=== PATIENT | female | born 1975 | race Caucasian/White ===

== ENCOUNTER 2016-12-30 19:52 | Emergency (ER) | payer BC ==
[~2016-12-30] VITALS: Ht 162.6 cm; Wt 131.2 kg
[~2016-12-30 19:52] MED LIST: ACET-62 PO; BISM262O28 PO; IBUP-1724 PO; INSU100I21 SQ; INSU100I3 SQ; LEVO200T10 PO; LEVO50TA11 PO; LISI-625 PO; ONDA4TAB7 PO; SERT100T PO; TOPI200T PO
--- OUTSIDE RECORDS SUMMARY | 2016-12-30 19:57 | XMS REPORT | Continuity of Care Document ---
Author Author [facility] Organization [facility] Address Unknown Phone Unavailable Support Name Relationship Address Phone FRANCOISE FARRELL DO Caregiver [address] [address] Unavailable TIKA CH Caregiver [address] [place] [address] Unavailable SELWYN HAMPTON Next Of Kin [address] [place] [id number] Insurance Providers Guarantor Lizzy Wang Address [address] [place], [place] [id number] Email DENIED/NO [facility] Policy Number [id number] Subscriber's Name Selwyn Hampton Relationship 01 Spouse Group Number [id number] Effective Date 14 Chief Complaint and Reason for Visit Chief Complaint Nausea,Vomiting,Diarrhea Reason for Visit Diabetes mellitus Gastroenteritis Problems Active Problems Medical Problem Onset Date Status Chronic back pain Unknown Chronic History of kidney infection Unknown Resolved Hypercholesterolemia Unknown Chronic IDDM (insulin dependent diabetes mellitus) Unknown Chronic Morbid obesity with BMI of 40.0-44.9, adult Unknown Chronic Muscle spasm of back Unknown Acute Renal insufficiency Unknown Chronic Right ankle sprain Unknown Acute Sleep apnea Unknown Chronic Past Problems Medical Problem Onset Date Diabetes mellitus Unknown Diabetes mellitus Unknown Gastroenteritis Unknown Gastroenteritis Unknown Hyperglycemia Unknown Intractable low back pain Unknown Right wrist sprain Unknown Seizure Unknown Strep pharyngitis Unknown Medications Current Home Medications Medication Dose Units Route Directions Days Qty Instructions Start Date Acetaminophen 500 Mg Tablet 1,000 Mg Oral Every 8 Hours as needed for Pain 11/15/16 Bismuth Subsalicylate (Pepto-Bismol) 262 Mg/15 Ml Oral.susp 30 Ml Oral As Needed 11/15/16 Ibuprofen 200 Mg Tablet 400 Mg Oral Every 4 Hours as needed for Pain 11/15/16 Insulin Aspart (Novolog Flexpen) 1 Unit Pen 60 Unit Sub-Q Three Times Daily With Meals 08/23/16 Insulin Aspart (Novolog Flexpen) 1 Unit Pen 60 Unit Sub-Q Three Times Daily With Meals 5 Syringe 11/15/16 Insulin Detemir (Levemir Flextouch) 100 Unit/1 Ml Insuln.pen 10 Unit Sub-Q Daily Morning Insulin 08/23/16 Insulin Detemir (Levemir Flextouch) 100 Unit/1 Ml Insuln.pen 60 Unit Sub-Q Bedtime 08/23/16 Levothyroxine Sodium 50 Mcg Tablet 50 Mcg Oral Before Breakfast Take with 200 mcg to equal 250 mcg daily. 05/02/16 Levothyroxine Sodium 200 Mcg Tablet 200 Mcg Oral Before Breakfast Take with 50 mcg to equal 250 mcg daily. 05/02/16 Lisinopril 5 Mg Tablet 5 Mg Oral Daily 08/23/16 Ondansetron (Zofran Odt) 4 Mg Tab.rapdis 4 Mg Oral Q8h @ 0100/0900/1700 7 Tablet Orally disintegrating tablet 11/15/16 Sertraline Hcl (Zoloft) 100 Mg Tablet 200 Mg Oral Bedtime Topiramate (Topamax) 200 Mg Tablet 200 Mg Oral Twice A Day Social History Social History Problem Response Recorded Date/Time Onset Date Status Hx Substance Use No 11/15/2016 6:31pm Not Applicable Not Applicable Hx Alcohol Use No 11/15/2016 6:31pm Not Applicable Not Applicable Has the pt used tobacco in the last 12 months Yes 01/28/2016 10:59pm Not Applicable Not Applicable Tobacco Usage smoke 01/28/2016 11:12pm Not Applicable Not Applicable Query Response Start Date Stop Date Smoking Status Former smoker Hospital Discharge Instructions No hospital discharge instructions. Plan of Care Discharge Date 11/15/16 8:03pm Disposition 01 DISCHARGED HOME, SELF-CARE Condition at Discharge Stable Instructions/Education Provided Gastroenteritis (ED) Prescriptions See Medication Section Referrals TIKA CH Address: [address] [place] [address] Additional Instructions/Education Take the Zofran as needed for nausea/ vomiting. Make sure to take small frequent sips of clear liquids often at home. If you are not improving in the next few days then please follow up with your primary care provider or return to ER for reevaluation. May take OTC tylenol and/or motrin as needed for body aches or pain. Care Plan and Goals Physician Care Plan Problem:Gastroenteritis Goal: Follow up with primary care provider Instructions: Take medications and follow care plan as discussed/written Functional Status No functional status results. Allergies, Adverse Reactions, Alerts Allergen Type Severity Reaction Status Last Updated Penicillin Allergy Unknown Active 08/29/16 Latex Allergy Severe Active 08/29/16 Hydrocodone Adverse Reaction Mild STOMACH IRRITATION Active 08/29/16 Aspirin Adverse Reaction Mild STOMACH IRRITATION Active 08/29/16 Cephalexin Allergy Unknown Active 08/29/16 Doxycycline Allergy Unknown Active 08/29/16 Latex Allergy Unknown HIVES Active 08/29/16 Immunizations Query Response on File Recorded Date/Time Hx Influenza Vaccination N not this yr, last fall01/28/16 10:59pm Hx Pneumococcal Vaccination Y 201201/28/16 10:59pm Hx Influenza Vaccination N not this yr, last fall01/28/16 10:59pm Influenza Vaccine Hx fall 201311/15/16 6:31pm Tdap Vaccine Hx CURRENT PER PT STATEMENT 08/29/16 12:00pm Vital Signs Acute Vital Signs Vital Response Date/Time Temperature (Fahrenheit) 99.7 deg F (96.8 - 99.1) 11/15/2016 4:55pm Temperature (Calculated Celsius) 37.80256 degrees C (36.0 - 37.3) 11/15/2016 4:55pm Pulse Rate (adult) 106 bpm (60 - 100) 11/15/2016 7:44pm Respiratory Rate 16 breaths/min (10 - 20) 11/15/2016 7:44pm O2 Sat by Pulse Oximetry 97 % (90 - 100) 11/15/2016 7:44pm Oxygen Flow Rate 1.00 L/min 11/15/2016 7:44pm Blood Pressure 106/55 mm Hg 11/15/2016 7:44pm Height (Feet) 5 feet 11/15/2016 4:55pm Height (Inches) 4.00 inches 11/15/2016 4:55pm Weight (Kilograms) 127.400 kg 11/15/2016 4:55pm Body Mass Index (BMI) 48.0 11/15/2016 4:55pm Results Laboratory Results Test Name Result Units Flags Reference Collection Date/Time Result Date/ Time Comments Group A Streptococcus Screen POSITIVE A NEGATIVE 08/23/2016 1:06pm 1:19pm White Blood Count 9.5 T/MM3 4.5-11.0 11/15/2016 5:14pm 11/15/2016 5: 34pm Red Blood Count 5.20 M/MM3 4.00-5.20 11/15/2016 5:14pm 11/15/2016 5: 34pm Hemoglobin 11.4 GM/DL L 12-16 11/15/2016 5:14pm 11/15/2016 5:34pm Hematocrit 38.6 % 36-46 11/15/2016 5:14pm 11/15/2016 5:34pm Mean Corpuscular Volume 74.2 UM3 L 80-100 11/15/2016 5:14pm 11/15/2016 5 :34pm Mean Corpuscular Hemoglobin 21.9 UUG L 26-34 11/15/2016 5:14pm 2016 5:34pm Mean Corpuscular Hemoglobin Concent 29.5 GM/DL L 31-37 11/15/2016 5:11/15/2016 5:34pm RDW Standard Deviation 50.0 FL 36.9-50.2 11/15/2016 5:pm 11/15/2016 5 :34pm Platelet Count 289 T/MM3 130-400 11/15/2016 5:11/15/2016 5:34pm Mean Platelet Volume 10.2 UM3 9.4-12.4 11/15/2016 5:14pm 11/15/2016 5: 34pm Neutrophils % (Manual) 77.0 % H 33-66 11/15/2016 5:pm 11/15/2016 5: 38pm Band Neutrophils % 10.0 % H 0-6 11/15/2016 5:pm 11/15/2016 5:38pm Lymphocytes % (Manual) 6.0 % L 23-45 11/15/2016 5:pm 11/15/2016 5: 38pm Monocytes % (Manual) 2.0 % 0-9.0 11/15/2016 5:14pm 11/15/2016 5:38pm Eosinophils % (Manual) 5.0 % H 0-4 11/15/2016 5:pm 11/15/2016 5:38pm Band Neutrophils # 1.0 T/MM3 11/15/2016 5:14pm 11/15/2016 5:38pm Absolute Neutrophils (Manual) 7.3 T/MM3 1.8-7.7 11/15/2016 5:14pm 11/15 5:38pm Lymphocytes # (Manual) 0.6 T/MM3 L 1-4.8 11/15/2016 5:14pm 11/15/2016 5: 38pm Monocytes # (Manual) 0.2 T/MM3 0-0.8 11/15/2016 5:14pm 11/15/2016 5: 38pm Eosinophils # (Manual) 0.5 T/MM3 0-0.5 11/15/2016 5:14pm 11/15/2016 5: 38pm Red Cell Morphology Comment NORMAL 11/15/2016 5:pm 11/15/2016 5: 38pm Icterus Index < 2 0-7 11/15/2016 5:11/15/2016 5:29pm Chemistry Specimen Hemolysis < 15 0-25 11/15/2016 5:11/15/2016 6 :45pm 0-25: Specimen Exhibited No Hemolysis. Turbidity < 20 0-20 11/15/2016 5:11/15/2016 5:29pm Sodium Level 137 MEQ/L 134-144 11/15/2016 5:11/15/2016 5:29pm Potassium Level 5.0 MEQ/L 3.6-5 11/15/2016 5:11/15/2016 5:29pm Chloride Level 96 MEQ/L L 98-107 11/15/2016 5:11/15/2016 5:29pm Carbon Dioxide Level 25 MEQ/L 22-30 11/15/2016 5:11/15/2016 5: 29pm Anion Gap 16 MEQ/L H 5-15 11/15/2016 5:11/15/2016 5:29pm Blood Urea Nitrogen 19.0 MG/DL H 7-11/15/2016 5:11/15/2016 5: 29pm Creatinine 0.7 MG/DL 0.7-1.2 11/15/2016 5:11/15/2016 5:29pm BUN/Creatinine Ratio 27 RATIO H 6-11/15/2016 5:11/15/2016 5: 29pm Glomerular Filtration Rate Calc 92 11/15/2016 5:1411/15/2016 5: 29pm Glucose Level 471 MG/DL H 65-110 11/15/2016 5:11/15/2016 5:29pm Calculated Osmolality 287 MOSM/KG H 261-280 11/15/2016 5:2016 5:29pm Calcium Level 9.4 MG/DL 8.4-10.2 11/15/2016 5:11/15/2016 5:29pm Total Bilirubin 1.50 MG/DL H 0.20-1.30 11/15/2016 5:11/15/2016 5: 29pm Alkaline Phosphatase 81 U/L 38-126 11/15/2016 5:11/15/2016 5:29pm Total Protein 8.2 G/DL 6.3-8.2 11/15/2016 5:11/15/2016 5:29pm Albumin 4.5 G/DL 3.5-5.0 11/15/2016 5:11/15/2016 5:29pm Globulin 3.7 G/DL H 2.4-3.6 11/15/2016 5:11/15/2016 5:29pm Albumin/Globulin Ratio 1.2 RATIO 1.1-2.2 11/15/2016 5:11/15/2016 5 :29pm Aspartate Amino Transf (AST/SGOT) 34 U/L 14-36 11/15/2016 5:2016 5:29pm Alanine Aminotransferase (ALT/SGPT) 48 U/L 9-52 11/15/2016 5:11/15 5:29pm Troponin I < 0.012 ng/ml 0-0.12 11/15/2016 5:11/15/2016 6:45pm Troponin values with a difference of 55% increase from orginal troponin value represent a true biological DELTA value. (%increase Calc=Orginal Troponin value, divided by subsequent Troponin value, multiplied by 100) Urine Collection Type CLEANCATCH-MIDSTREAM 11/15/2016 5:2016 5:50pm Urine Color YELLOW YELLOW 11/15/2016 5:11/15/2016 5:50pm Urine Turbidity SL CLOUDY CLEAR 11/15/2016 5:11/15/2016 5:50pm Urine Specific [employer] 1.020 1.015-1.025 11/15/2016 5:2016 5:50pm Urine pH 5.5 5.0-8.0 11/15/2016 5:43pm 11/15/2016 5:50pm Urine Leukocyte Esterase NEGATIVE NEGATIVE 11/15/2016 5:43pm 2016 5:50pm Urine Nitrite NEGATIVE NEGATIVE 11/15/2016 5:43pm 11/15/2016 5:50pm Urine Protein 2+ A NEGATIVE 11/15/2016 5:43pm 11/15/2016 5:50pm Urine Glucose (UA) 3+ A NEGATIVE 11/15/2016 5:43pm 11/15/2016 5:50pm Urine Ketones 2+ A NEGATIVE 11/15/2016 5:43pm 11/15/2016 5:50pm Urine Urobilinogen 0.2 EU/DL NORMAL 11/15/2016 5:43pm 11/15/2016 5: 50pm Urine Bilirubin NEGATIVE NEGATIVE 11/15/2016 5:43pm 11/15/2016 5: 50pm Urine Blood TRACE-INTACT A NEGATIVE 11/15/2016 5:43pm 11/15/2016 5: 50pm Urine WBC 1-3 /HPF 0-5 11/15/2016 5:43pm 11/15/2016 6:15pm Urine RBC 0-1 /HPF 0-3 11/15/2016 5:43pm 11/15/2016 6:15pm Urine Squamous Epithelial Cells 20-50 11/15/2016 5:43pm 11/15/2016 6:15pm Urine Bacteria NONE SEEN NEGATIVE 11/15/2016 5:43pm 11/15/2016 6: 15pm Urine Culture Indicated CULT NOT INDICATED 11/15/2016 5:43pm 2016 6:15pm Glucometer 354 mg/dL H 65-110 11/15/2016 7:51pm 11/15/2016 7:54pm Procedures Procedure Status Date Provider(s) Strep a ag ia Completed 08/23/16 Emergency dept visit Completed 08/23/16 X-ray exam of wrist Completed 08/29/16 Emergency dept visit Completed 08/29/16 Encounters Encounter Location Arrival/Admit Date Discharge/Depart Date Attending Provider Departed Emergency Room [facility] 11/15/16 4:50pm 11/15/16 8: 03pm FRANCOISE FARRELL DO Departed Emergency Room [facility] 08/29/16 11:11am 08/29/16 12: 40pm MAYIRASEMA DO Departed Emergency Room [facility] 08/23/16 12:50pm 08/23/16 1: 30pm MARY EDMONDS MD Recent Diagnosis
[2016-12-30 19:58] VITALS: Ht 162.6 cm; Wt 131.2 kg
--- NOTE | 2016-12-30 20:17 | ERPDOC ---
Departure Disposition Decision Date: Dec 30, 2016 Disposition Decision Time: 23:06 (ANDRESSA MUÑOZ APRN) Disposition: 01 DISCHARGED HOME, SELF-CARE Impression Impression (ANDRESSA MUÑOZ APRN) Impression: Primary Impression: Headache Headache type: unspecified Headache chronicity pattern: acute headache Intractability: not intractable Qualified Codes: R51 - Headache Additional Impressions: Dysuria Acute exacerbation of chronic low back pain Severity: Moderate (ANDRESSA MUÑOZ APRN) Condition: Improved Seen By: Mid-level only (ANDRESSA MUÑOZ APRN) Referrals: TIKA CH (Family) Patient Instructions: Acute Headache (ED), Back Pain (ED), Dysuria (ED) Problems/Meds/Labs Reviewed?: Yes Medications reviewed and manag: Yes (ANDRESSA MUÑOZ APRN) Additional Instructions: Your UA does not indicate an urinary tract infection. Your blood sugar is elevated and you have trace ketones in your urine which indicates mild dehydration which can cause a headache. Stay well hydrated. Rest. You may take Percocet 5/325mg, 1-2 every 6 hours as needed for pain. You may take OTC ibuprofen. If your symptoms are not improving by Monday please follow with your PCP for re- evaluation. Follow up care ordered?: Yes Mental Status: Alert, Oriented (ANDRESSA MUÑOZ APRN) HPI - General Medical General Chief Complaint: General Stated Complaint: HEADACHE,KIDNEY PAIN Time Seen by Provider: 20:12 Source: patient (ANDRESSA MUÑOZ APRN) Time Seen by Provider: 20:12 (FRANCOISE FARRELL DO) HPI - General Medical Initial Comments 41 YO patient presents to ED with report of onset of bilateral back pain, headache and generalized body aches that started this afternoon. Says headache is consistent with her usual HAs. Patient says she feels like she is getting an UTI. Report more frequent urination. Admits she has had an intermittent dry cough for a few days, more frequent urination. Denies fever, chills, SOA, abdominal pain, vomiting, dysuria, hematuria, loss of sensation/function, numbness/tingling in legs/feet, back strain/trauma or ataxia. Pain Scale: Now: 8/10 (headache, back and generalized body aches) 1 - Reports pain 2 - Reports pain Associated Symptoms: cough, DENIES: diaphoresis, fever/chills, shortness of breath, syncope, weakness (ANDRESSA MUÑOZ OPERATIONS TRAINER) Allergies: Coded Allergies: Bleach (Sodium Hypochlorite) (Verified Allergy, Severe, TROUBLE BREATHING , 12/30/16) Latex, Natural Rubber (Verified Allergy, Severe, 08/29/16) depends on where touches on her body, face will have tounge swelling Penicillins (Verified Allergy, Unknown, 08/29/16) cephalexin (Verified Allergy, Unknown, 08/29/16) doxycycline (Verified Allergy, Unknown, 08/29/16) latex (Verified Allergy, Unknown, HIVES, 08/29/16) aspirin (Verified Adverse Reaction, Mild, STOMACH IRRITATION, 08/29/16) hydrocodone (Verified Adverse Reaction, Mild, STOMACH IRRITATION, 08/29/16 ) Past History Patient Surgical History Cholecystectomy Exploratory laparotomy Peritoneal abscess excision with positive MRSA Multiple nephrectomy tubes (ANDRESSA MUÑOZ APRN) Past Medical History Metabolic: diabetes (type II), hypercholesterolemia, hypertension Cardiac: DENIES: angina Respiratory: DENIES: asthma GI: gallbladder disease, DENIES: ulcers Female: DENIES: renal insufficiency Neurological: seizures Musculoskeletal: back pain Integumentary: other (MRSA) Hematologic: anemia Psychological: anxiety, bipolar, depression (ANDRESSA MUÑOZ OPERATIONS TRAINER) Surgical History General: gallbladder Reproductive/: , tubal ligation (ANDRESSA MUÑOZ APRN) Family History Family PMH: FOUND: other (noncontributory) (ANDRESSA MUÑOZ APRN) Vaccines Hx Influenza Vaccination: No (not this yr, last fall) Hx Pneumococcal Vaccination: Yes (2012) (ANDRESSA MUÑOZ APRN) Social History # of Packs/Tins per Day: 0.5 Sexuality: male partner (ANDRESSA MUÑOZ APRN) Review of Systems Constitutional Constitutional: DENIES: chills, dizziness, fever, weakness (ANDRESSA MUÑOZ APRN) Eyes General: DENIES: erythema, exudate Lids/Accessories: DENIES: erythema, swelling (ANDRESSA MUÑOZ APRN) ENMT Ears: DENIES: pain Sinuses: DENIES: congestion, rhinorrhea Mouth/Throat: DENIES: sore throat (ANDRESSA MUÑOZ APRN) Cardiovascular Cardiac: DENIES: chest pain, murmur Rhythm/Rate: DENIES: palpitations (MUÑOZ,ANDRESSA A OPERATIONS TRAINER) Pulmonary Respiratory: cough, DENIES: dyspnea (MUÑOZ,ANDRESSA A OPERATIONS TRAINER) GI Upper Abdomen: nausea, DENIES: pain, vomiting Lower Abdomen: DENIES: diarrhea, pain (MUÑOZ,ANDRESSA A OPERATIONS TRAINER) General: burning, dysuria (MUÑOZ,ANDRESSA A OPERATIONS TRAINER) Musculoskeletal General: pain (genralized body aches), DENIES: joint pain, tenderness (MUÑOZ, ANDRESSA A OPERATIONS TRAINER) Integumentary Skin: DENIES: color change, itching, rash (MUÑOZ,ANDRESSA A OPERATIONS TRAINER) Neurological General: headache, see HPI, DENIES: ataxia, change in strength, numbness, paralysis/paresis, weakness (MUÑOZ,ANDRESSA A OPERATIONS TRAINER) Psychiatric Psychiatric: DENIES: anxiety, depression, nervousness (MUÑOZ,ANDRESSA A OPERATIONS TRAINER) Physical Exam General General Nourishment: well nourished, well developed, no acute distress, adult, obese General Body Habitus: well groomed (MUÑOZANDRESSA A OPERATIONS TRAINER) Vitals and Pain Weight: Kilograms: 131.200 Height (feet): 5 Height (inches): 4.00 Triage Pain Scale: (MUÑOZ,ANDRESSA A OPERATIONS TRAINER) Eyes (brief) Eyes Brief: found: EOMI, PERRL (MUÑOZ,ANDRESSA A OPERATIONS TRAINER) ENMT (brief) ENMT Brief: FOUND: TM clear, TM good light reflex, mucosa moist, NOT FOUND: nasal exudate, nasal swelling, pharnyx erythema (MUÑOZ,ANDRESSA A OPERATIONS TRAINER) Neck (brief) Neck: FOUND: trachea midline, NOT FOUND: adenopathy, tenderness, thyromegaly ( MUÑOZ,ANDRESSA A OPERATIONS TRAINER) Respiratory (brief) Respiratory: FOUND: clear all villalta, equal bilaterally, symmetrical (MUÑOZ, ANDRESSA A OPERATIONS TRAINER) Cardiovascular (brief) Cardiac: FOUND: regular rate, regular rhythm (MUÑOZ,ANDRESSA A OPERATIONS TRAINER) Abdomen (brief) Abdominal Brief: FOUND: bowel normo active x4, soft, NOT FOUND: tender (MUÑOZ, ANDRESSA A OPERATIONS TRAINER) Musculoskeletal Back: FOUND: tenderness (bilateral pain over latissimus dorsi and thoracolumbar area), NOT FOUND: other (no CVA TTP), spasm, spine point tenderness (MUÑOZ,ANDRESSA A OPERATIONS TRAINER) Integumentary (brief) Integumentary Brief: FOUND: dry, pink, warm (ANDRESSA MUÑOZ APRN) Neurologic (brief) Neurological Brief: FOUND: CN w/o gross def to obs, motor-no gross deficits, sensory-no gross deficits (ANDRESSA MUÑOZ APRN) Psychiatric (brief) Psychiatric Brief: FOUND: alert, normal affect, oriented (ANDRESSA MUÑOZ APRN ) Differential Diagnoses Considering: Lumbar Sprain, Lumbar Strain, Pyelonephritis, Renal Colic, Thoracic Sprain, Thoracic Strain, UTI Considering: Cervical Strain, Headache, Headache - Tension/Muscle, Sinusitis - Sphenoid, Viral Syndrome (ANDRESSA MUÑOZ APRN) Progress Results/Orders Orders Procedure Category Date Status Time Cbc W/Auto LAB 12/30/16 Complete Diff-Reflex Manual Cmp - Comprehensive LAB 12/30/16 Complete Metabolic UA, LAB 12/30/16 Complete Dip&Micro(Complete) & 20:14 Iv Lock (Ed Only) EDM 12/30/16 Transmitted 21:03 Normal Saline (Normal PHA 12/30/16 Complete Saline Iv) 21:15 Diphenhydramine PHA 12/30/16 Complete (Benadryl) 21:15 Ketorolac (Toradol) PHA 12/30/16 Complete 21:15 Prochlorperazine PHA 12/30/16 Complete (Compazine) 21:15 Hydromorphone PHA 12/30/16 Complete (Dilaudid) 23:00 Oxycodone/Apap 5/325 PHA 12/30/16 Complete (Prepack) (Percocet 23:30 (FRANCOISE FARRELL DO) Lab Results Laboratory Tests Test 12/30/16 20:12 12/30/16 20:14 12/30/16 20:39 Glucometer 354mg/dL Urine Collection Type Cleancatch-midstream Urine Color Yellow Urine Turbidity Clear Urine pH 6.0 Urine Specific [place] 1.020 Urine Protein 2+ Urine Glucose (UA) 3+ Urine Ketones Trace Urine Blood Trace-lysed Urine Nitrite Negative Urine Bilirubin Negative Urine Urobilinogen 0.2EU/DL Urine Leukocyte Esterase Negative Urine RBC 1-3/HPF Urine WBC 1-3/HPF Urine Squamous Epithelial Cells 20-50 Urine Bacteria Trace Urine Culture Indicated Cult not indicated White Blood Count 6.7T/MM3 Red Blood Count 4.78M/MM3 Hemoglobin 10.5GM/DL Hematocrit 35.0% Mean Corpuscular Volume 73.2UM3 Mean Corpuscular Hemoglobin 22.0UUG Mean Corpuscular Hemoglobin Concent 30.0GM/DL RDW Standard Deviation 49.9FL Platelet Count 287T/MM3 Mean Platelet Volume 9.6UM3 Immature Granulocyte % (Auto) 0.6% Neutrophils (%) (Auto) 56.1% Lymphocytes (%) (Auto) 29.5% Monocytes (%) (Auto) 6.5% Eosinophils (%) (Auto) 6.7% Basophils (%) (Auto) 0.6% Absolute Immature Granulocyte (auto 0.04T/MM3 Absolute Neutrophils (auto) 3.8T/MM3 Absolute Lymphocytes (auto) 2.0T/MM3 Absolute Monocytes (auto) 0.4T/MM3 Absolute Eosinophils (auto) 0.5T/MM3 Absolute Basophils (auto) 0.0T/MM3 Turbidity 26 Sodium Level 139MEQ/L Potassium Level 4.1MEQ/L Chloride Level 99MEQ/L Carbon Dioxide Level 25MEQ/L Anion Gap 15MEQ/L Blood Urea Nitrogen 15.0MG/DL Creatinine 0.7MG/DL Glomerular Filtration Rate Calc 92 BUN/Creatinine Ratio 21RATIO Glucose Level 394MG/DL Calculated Osmolality 285MOSM/KG Calcium Level 9.4MG/DL Total Bilirubin 0.80MG/DL Icterus Index < 2 Aspartate Amino Transf (AST/SGOT) 26U/L Alanine Aminotransferase (ALT/SGPT) 48U/L Alkaline Phosphatase 75U/L Total Protein 7.5G/DL Albumin 4.2G/DL Globulin 3.3G/DL Albumin/Globulin Ratio 1.3RATIO Chemistry Specimen Hemolysis < 15 (FRANCOISE FARRELL DO) Medications Current ED Medications Sodium Chloride (Normal Saline IV) 1,000 ml @ 0 mls/hr Q0M ONCE IV Last administered on 12/30/16 21:28; Start 12/30/16 at 21:15; Stop 12/30/16 at 21:16 ; Status DC Diphenhydramine HCl (Benadryl) 50 mg O ONCE IV ; Start 12/30/16 at 21:15; Stop 12/30/16 at 21:15; Status DC Ketorolac Tromethamine (Toradol) 30 mg O ONCE IV Last administered on 21:31; Start 12/30/16 at 21:15; Stop 12/30/16 at 21:16; Status DC Prochlorperazine Edisylate (Compazine) 10 mg O ONCE IV Last administered on 21:30; Start 12/30/16 at 21:15; Stop 12/30/16 at 21:16; Status DC Hydromorphone HCl (Dilaudid) 1 mg O ONCE IV Last administered on 12/30/16 22: 52; Start 12/30/16 at 23:00; Stop 12/30/16 at 23:01; Status DC Oxycodone/ Acetaminophen (Percocet 5 (Prepack)) 1 pack O ONCE SENT HOME Last administered on 12/30/16 23:54; Start 12/30/16 at 23:30; Stop 12/30/16 at 23:31 ; Status DC (FRANCOISE FARRELL DO) Progress Progress WBC 6.7 HGB 10.5, stable from previous Glucose 394 which I spoke with patient about who said she ate dinner but did not take her insulin. UA does not show infection, trace ketones with 3+ sugar Patient reports feeling "a little better after fluids". I discussed labs and answered questions in detail with patient. I discussed with patient she may have viral syndrome. Patient is discharge home improved. Patient verbalized understanding of treatment plan, follow up with PCP and return precaution. (ANDRESSA MUÑOZ APRN) ANDRESSA MUÑOZ APRN Dec 30, 2016 20:17 FRANCOISE FARRELL DO January 07, 2017 21:47
[2016-12-30] MEDS ORDERED: VITA1CAP PO (20:21)
--- NOTE | 2016-12-30 20:23 | NUR ---
PROVIDER Kenneth MUÑOZ FISHING MANAGER AT BEDSIDE FOR H&P
[2016-12-30 20:28] LABS: BLOOD, URINE TRACE-LYSED (NEGATIVE); COLOR,URINE YELLOW (YELLOW); LEUKOCYTE ESTERASE ,URINE NEGATIVE (NEGATIVE); NITRITE,URINE NEGATIVE (NEGATIVE); UROBILINOGEN,URINE 0.2 EU/DL (NORMAL)
[2016-12-30 20:34] LABS: BACTERIA,URINE TRACE (NEGATIVE); SQUAMOUS EPITHELIAL CELL,UR 20-50
[2016-12-30 20:47] LABS: BASOPHILS % (AUTO) 0.6 % (0-2); EOSINOPHILS # (AUTO) 0.5 T/MM3 (0-0.5); EOSINOPHILS % (AUTO) 6.7 % (0-4); HGB - HEMOGLOBIN 10.5 GM/DL (12-16); IMMATURE GRANULOCYTE # (AUTO) 0.04 T/MM3 (0.00-0.03); IMMATURE GRANULOCYTE % (AUTO) 0.6 % (0.0-0.5); LYMPHOCYTES % (AUTO) 29.5 % (23-45); MEAN CORPUSCULAR VOLUME 73.2 UM3 (80-100); MEAN PLATELET VOLUME 9.6 UM3 (9.4-12.4); MONOCYTES # (AUTO) 0.4 T/MM3 (0-0.8); MONOCYTES % (AUTO) 6.5 % (0-9.0); NEUTROPHILS #(AUTO)-ABSOLUTE 3.8 T/MM3 (1.8-7.7); NEUTROPHILS % (AUTO) 56.1 % (33-66); RED BLOOD COUNT 4.78 M/MM3 (4.00-5.20); WBC - WHITE BLOOD COUNT 6.7 T/MM3 (4.5-11.0)
[2016-12-30 20:53] LABS: ALBUMIN 4.2 G/DL (3.5-5.0); ALBUMIN/GLOBULIN RATIO 1.3 RATIO (1.1-2.2); ALKALINE PHOSPHATASE 75 U/L (38-126); ALT (SGPT) 48 U/L (9-52); ANION GAP 15 MEQ/L (5-15); AST (SGOT) 26 U/L (14-36); BUN/CREATININE RATIO 21 RATIO (6-26); CALCIUM 9.4 MG/DL (8.4-10.2); CHLORIDE 99 MEQ/L (98-107); CO2 - CARBON DIOXIDE 25 MEQ/L (22-30); CREATININE 0.7 MG/DL (0.7-1.2); GLOMERULAR FILTRATION RATE 92; GLUCOSE 394 MG/DL (65-110); POTASSIUM 4.1 MEQ/L (3.6-5); SODIUM 139 MEQ/L (134-144); TOTAL PROTEIN 7.5 G/DL (6.3-8.2)
[2016-12-30] MEDS ORDERED: DiphenhydrAMINE 50 MG/ML INJECTION IV ONE (21:15)
[2016-12-30] MEDS ORDERED: KETOROLAC 30mg/ml INJECTION IV ONE (21:15)
[2016-12-30] MEDS ORDERED: NORMAL SALINE 1,000 ML IV ONE (21:15)
[2016-12-30] MEDS ORDERED: PROCHLORPERAZINE 10mg/2ml INJECTION IV ONE (21:15)
--- NOTE | 2016-12-30 22:31 | NUR ---
STATUS PT SLEEPING. WILL WAKE WHEN SPOKEN TO. ANSWERS APPROPRIATELY. SPOUSE AT SIDE.
[2016-12-30] MEDS ORDERED: HYDROMORPHONE 2mg/ml INJECTION IV ONE (23:00)
[2016-12-30] MEDS ORDERED: OXYCODONE/APAP 5/325 (Prepack) SENT HOME ONE (23:30)
[2016-12-30 23:56] VITALS: BP 156/86; PULSE 91; RESP 18; TEMP 97.2; O2SAT 96
== END 2016-12-30 23:56 | disposition home or self-care (01) ==
LOC: ED 19:52
DX: R51 Headache (principal); M54.5 Low back pain; R35.0 Frequency of micturition; R30.0 Dysuria; R05 Cough; E11.9 Type 2 diabetes mellitus without complications; Z79.4 Long term (current) use of insulin
CPT/HCPCS: 36415; 80053; 81001; 82948; 85025; 96361; 96374; 96375; 99284; J0780; J1170; J1885; J7030